=== PATIENT | male | born 1955 | race Caucasian/White ===

== ENCOUNTER 2022-11-14 18:50 | Emergency (ER) | payer BC, OTHER ==
--- NOTE | 2022-11-14 20:03 | NUR ---
CALLED PT FOR TRIAGE. NO ANSWER
--- NOTE | 2022-11-14 20:23 | NUR ---
CALLED PT FOR TRIAGE. NO ANSWER
== END 2022-11-14 20:23 | disposition left against medical advice (07) ==
LOC: ER 18:50
DX: Z53.21 Procedure and treatment not carried out due to patient leaving prior to being seen by health care provider (principal)

== ENCOUNTER 2024-05-20 20:53 | Emergency (ER) | payer OTHER, MEDICAID ==
[~2024-05-20] VITALS: Ht 165.1 cm; Wt 68.0 kg
[2024-05-20 22:03] LABS: BASOPHILS # (AUTO) 0.1 K/uL (0.0-0.2); BASOPHILS % (AUTO) 0.8 % (0.0-2.0); EOSINOPHILS # (AUTO) 0.2 K/uL (0.0-0.7); EOSINOPHILS % (AUTO) 1.7 % (0.0-6.0); HEMATOCRIT 37 % (39-51); LYMPHOCYTES # (AUTO) 1.4 K/uL (0.8-4.8); LYMPHOCYTES % (AUTO) 10.9 % (20.0-44.0); MEAN CORPUSCULAR HEMOGLOBIN 36 PG (26.0-33.0); MEAN CORPUSCULAR HGB CONC 35 g/dl (31.0-36.0); MEAN CORPUSCULAR VOLUME 102 fL (80-96); MONOCYTES # (AUTO) 0.6 K/uL (0.1-1.30); MONOCYTES % (AUTO) 4.5 % (2.0-12.0); NEUTROPHILS # (AUTO) 10.4 K/uL (1.8-8.9); NEUTROPHILS % (AUTO) 82.1 % (43.0-81.0); PLATELET COUNT (AUTO) 106 K/uL (150-450); RED CELL DISTRIBUTION WIDTH 12.4 % (11.5-15.0); WHITE BLOOD COUNT (AUTO) 12.7 K/uL (4.3-11.0)
[2024-05-20 22:14] LABS: CALCIUM, SERUM 8.6 mg/dL (8.5-10.1); CARBON DIOXIDE 27 mmol/L (21-32); CHLORIDE 106 mmol/L (98-107); CREATININE 0.9 mg/dL (0.6-1.3); GLUCOSE 172 mg/dL (74-106); POTASSIUM 3.5 mmol/L (3.5-5.1); SODIUM SERUM 141 mmol/L (136-145); UREA NITROGEN, BLOOD 16 mg/dL (7-18)
[2024-05-20] MEDS ORDERED: CEFTRIAXONE 1GM BAG (ER ONLY) 50 ML IV ONE (22:29)
[2024-05-20] MEDS: CEFTRIAXONE 1GM BAG (ER ONLY) 1 GM/50 ML PIGGYBACK IV ONE (22:38)
[2024-05-20] MEDS ORDERED: AMOX-430 PO (23:18)
[2024-05-20] MEDS ORDERED: AZIT500T4 PO (23:18)
[2024-05-20] MEDS ORDERED: AZITHROMYCIN 250 MG TABLET ONE (23:34)
[2024-05-20] MEDS: AZITHROMYCIN 250 MG TABLET PO ONE (23:35)
[2024-05-21 00:24] VITALS: BP 113/69; TEMP 101.9; O2SAT 96
== END 2024-05-21 00:22 | disposition home or self-care (01) ==
LOC: ER 20:55
DX: J18.9 Pneumonia, unspecified organism (principal); R05.9 Cough, unspecified; R50.9 Fever, unspecified; R25.1 Tremor, unspecified; R06.02 Shortness of breath; E11.9 Type 2 diabetes mellitus without complications; Z60.2 Problems related to living alone; Z20.822 Contact with and (suspected) exposure to COVID-19
CPT/HCPCS: 99285; 96365; 71045; 87426; 93005; 85025; 80048; 87040; 36415; 84484; J0696